=== PATIENT | male | born 1980 | race African-American/Black ===

== ENCOUNTER 2020-09-19 17:54 | Emergency (ER) | payer SELFPAY ==
[~2020-09-19] VITALS: Ht 180.3 cm; Wt 80.0 kg
[2020-09-19] MEDS ORDERED: METH-375 PO (18:32)
[2020-09-19] MEDS ORDERED: IBUP-2029 MT (18:32)
[2020-09-19 18:47] VITALS: BP 110/60
== END 2020-09-19 18:47 | disposition home or self-care (01) ==
LOC: ER 17:54
DX: M54.5 Low back pain (principal); Z79.899 Other long term (current) drug therapy
CPT/HCPCS: 93005; 99283